=== PATIENT | female | born 1945 | race Caucasian/White ===

== ENCOUNTER 2017-08-16 07:18 | Inpatient (IN) | payer MEDICARE, BC ==
[2017-08-16] VITALS (11 sets, daily range): BP systolic 86–137; BP diastolic 48–61
[~2017-08-16 07:18] MED LIST: AMLODIPINE BESYL5 MG PO; AMLODIPINE5 MG PO; ATORVASTATIN CA40 MG PO; CLOPIDOGREL75 MG PO; COQ10200 MG PO; CRESTOR10 MG PO; CYMBALTA30 MG PO; HYDROCHLORO25 MG/TAB PO; LISINOPRIL20 MG PO; LORTAB 10-325 M1 TAB PO; METOPROL TAR25 MG PO; PLAVIX75 MG PO; PROTONIX40 M2 PO
[2017-08-16 10:35] LABS: HEMATOCRIT 44.3 % (37.0-47.0); HEMOGLOBIN 14.5 g/dl (12.0-16.0); IMMATURE GRANULOCYTES 0.2 % (0.0-1.0); MEAN CELL VOLUME 97.8 fL CALC (80.0-100.0); MEAN CORPUSCULAR HGB CONC 32.7 g/L CALC (32.0-36.0); NEUT# 2.84 thou/uL (2.00-7.15); RED BLOOD COUNT 4.53 mill/uL (4.20-5.60); RED CELL DISTRI WIDTH 12.7 % (11.5-15.5)
== END 2017-08-16 18:45 | DRG 908 ==
LOC: ENDO 07:18 → ICU 13:08
PROVIDERS: ADMIT Surgery; ATTEND Surgery
PROC: 0DBN0ZZ Excision of Sigmoid Colon, Open Approach (ICD-10-PCS; principal; 2017-08-16)
PROC: 0DJD4ZZ Inspection of Lower Intestinal Tract, Percutaneous Endoscopic Approach (ICD-10-PCS; 2017-08-16)
PROC: 0DJD8ZZ Inspection of Lower Intestinal Tract, Via Natural or Artificial Opening Endoscopic (ICD-10-PCS; 2017-08-16)
DX: K91.71 Accidental puncture and laceration of a digestive system organ or structure during a digestive system procedure (principal); Q43.9 Congenital malformation of intestine, unspecified; K57.30 Diverticulosis of large intestine without perforation or abscess without bleeding; K66.0 Peritoneal adhesions (postprocedural) (postinfection); Y83.8 Other surgical procedures as the cause of abnormal reaction of the patient, or of later complication, without mention of misadventure at the time of the procedure; Y92.234 Operating room of hospital as the place of occurrence of the external cause; Z12.11 Encounter for screening for malignant neoplasm of colon; E78.4 Other hyperlipidemia
CPT/HCPCS: 44140; G0121; G0104; J2710

== ENCOUNTER → 2018-11-16 | Outpatient (REF) | payer MEDICARE, BC | END | disposition home or self-care (01) | LOC: ULTRASND 09:16 | PROVIDERS: ATTEND Nurse Practitioner | DX: I10 Essential (primary) hypertension (principal) ==

== ENCOUNTER → 2018-11-21 | Outpatient (REF) | payer MEDICARE, BC | END | disposition home or self-care (01) | LOC: LABSPEC 11:11 | PROVIDERS: ATTEND Nurse Practitioner | DX: I10 Essential (primary) hypertension (principal) ==

== ENCOUNTER 2019-03-27 17:18 | Emergency (ER) | payer MEDICARE, BC ==
[~2019-03-27] VITALS: Ht 172.7 cm; Wt 90.0 kg
[2019-03-27] MEDS ORDERED: NAPROSYN500 MG PO (19:06)
[2019-03-27 20:15] VITALS: BP 150/82
== END 2019-03-27 20:20 | disposition home or self-care (01) ==
LOC: ED 17:18
DX: S00.33XA Contusion of nose, initial encounter (principal); S00.83XA Contusion of other part of head, initial encounter; S00.81XA Abrasion of other part of head, initial encounter; S00.511A Abrasion of lip, initial encounter; M25.521 Pain in right elbow; I10 Essential (primary) hypertension; E11.9 Type 2 diabetes mellitus without complications; W01.0XXA Fall on same level from slipping, tripping and stumbling without subsequent striking against object, initial encounter; Z86.73 Personal history of transient ischemic attack (TIA), and cerebral infarction without residual deficits